=== PATIENT | female | born 1985 | race African-American/Black ===

== ENCOUNTER 2016-09-01 13:17 | Emergency (ER) | payer OTHER ==
[~2016-09-01] VITALS: Ht 152.4 cm; Wt 77.1 kg
[~2016-09-01 13:17] MED LIST: DOXYCYCLINE HY100 M4 PO; FLEXERIL10 MG PO; HYDROXYZINE50 MG PO; IBU800 MG PO; PERCOCET 5-3251 EACH PO; TORADOL10 MG PO; TRIAMCINOLONE AC0.5% TOP; TYLENOL #31 TAB PO
[2016-09-01 13:31] VITALS: BP 109/79
--- NOTE | 2016-09-01 13:55 | ED UPPER/LOWER EXTREMITY COMPL ---
History of Present Illness General Chief Complaint: Hand or Wrist Injury Stated Complaint: ?BROKEN FINGER (LT 5TH FINGER) Source: patient Exam Limitations: no limitations Vital Signs & Intake/Output Vital Signs & Intake/Output Vital Signs Date Time Temp Pulse Resp B/P Pulse O2 O2 Flow FiO2 Ox Delivery Rate 09/01 1331 98.5 66 16 109/79 98 Room Air Allergies Coded Allergies: NO KNOWN ALLERGIES (12/05/15) Reconcile Medications Ibuprofen (Ibu) 800 MG TAB 1 TAB PO Q8H PRN PAIN Oxycodone HCl/Acetaminophen (Percocet 5-325 MG Tablet) 5 MG-325 MG TABLET 1 TAB PO 4 TIMES/DAY PRN PAIN Oxycodone HCl/Acetaminophen (Percocet 5-325 MG Tablet) 1 EACH TABLET 2 TAB PO Q3P PRN PAIN Triage Note: PT STATES SHE WAS MOVING FURNITURE AND THE DRESSER FELL ON HER LEFT HAND. PT HAS SWELLING AND PAIN TO LEFT HAND Triage Nurses Notes Reviewed? yes : No Patient currently breastfeeds: No HPI: 30-year-old female with complaints of severe throbbing left hand pain and swelling after she was moving a dresser and the dresser fell onto her hand. She denies any other injuries. No previous injuries. She is right-hand dominant. Pain is at the fifth metacarpal distal region. (BEBE MOYA) Past History Travel History Traveled to [place] past 21 day No Medical History Any Pertinent Medical History? 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 No (BEBE MOYA) Review of Systems Review of Systems Constitutional: Reports: see HPI. EENTM: Reports: no symptoms. Respiratory: Reports: no symptoms. Cardiovascular: Reports: no symptoms. Gastrointestinal/Abdominal: Reports: no symptoms. Genitourinary: Reports: no symptoms. Musculoskeletal: Reports: see HPI. Skin: Reports: no symptoms. Neurological/Psychological: Reports: no symptoms. Hematologic/Endocrine: Reports: no symptoms. Immunological: Reports: no symptoms. All Other Systems: Reviewed and Negative (BEBE MOYA) Physical Exam Physical Exam General Appearance: well developed/nourished Comments: Well-developed well-nourished no apparent distress. HEENT: Atraumatic, extraocular motion intact Neck: Supple, no lymphadenopathy Back: Nontender Respiratory: No respiratory distress Extremities: No edema, full range of motion Neuro: Alert and oriented x3 Psych: Mood affect normal, normal memory normal judgment. Skin: Warm and dry, no rash on exposed skin Left hand, moderate tenderness swelling and ecchymosis to the fifth metacarpal distal aspect and fifth metacarpal phalangeal joint. Range of motion is limited secondary to pain. There is no rotational deformity noted on exam. Neurovascularly intact. (BEBE MOYA) Progress Differential Diagnosis: compartment syndrome, contusion, sprain, tendon injury Plan of Care: Orders Procedure Date/time Status URINE 09/01 1342 Complete Laboratory Tests 09/01/16 1408: Urine Test NEGATIVE Diagnostic Imaging: Viewed by Me: Radiology Read. Discussed w/RAD: Radiology Read. Radiology Impression: PATIENT: EWELINA HURLEY PRESENT AGE: 30 PATIENT ACCOUNT NO: [id number] : 84 LOCATION: [facility] ORDERING PHYSICIAN: JOSE CHOI SERVICE DATE: 09/01/16 EXAM TYPE: RAD - XRY-FINGERS, LEFT EXAMINATION: XR FINGER, LEFT CLINICAL INFORMATION: Trauma COMPARISON: None. TECHNIQUE: 4 views of the left fifth finger including a PA view of the left hand. FINDINGS: There is soft tissue swelling adjacent to the fifth metacarpal phalangeal joint. An ovoid bony fragment is seen in the soft tissues lateral to the metacarpal head. This could represent an avulsion fracture from the articular cortex of the distal fifth metacarpal. Also, there is slight offset through the growth plate of the fifth metacarpal head. IMPRESSION: Unusual fracture involving the distal aspect of the left fifth metacarpal with articular cortical avulsion and slight offset of the growth plate. No dislocation. DICTATED BY: ANTONIETA QUESADA MD DATE/TIME DICTATED:09/17 FUR CLEANER:KIANA Comments: A well-padded well molded sugar tong splint applied to the left upper extremity by myself, neurovascularly intact, place in the position of safety. Splint made of Ortho-Glass. Recommend rest ice elevation stay in splint and follow-up with orthopedist this week (BEBE MOYA) Departure Departure Disposition: HOME OR SELF CARE Condition: Stable Clinical Impression Primary Impression: Closed boxer's fracture Qualifiers: Encounter type: initial encounter Qualified Code: S62.309A - Unspecified fracture of unspecified metacarpal bone, initial encounter for closed fracture Referrals: WADE BECKFORD APRN (PCP/Family) KRISTEN YBARRA MD Referred to [facility] as new patient No Additional Instructions: Stay in splint. Motrin and Percocet as needed for pain, elevate, keep splint clean and dry, follow-up with orthopedist this week, call to make an appointment. Departure Forms: Customer Survey General Discharge Information Prescriptions: Current Visit Scripts Oxycodone HCl/Acetaminophen (Percocet 5-325 MG Tablet) 1 TAB PO 4 TIMES/DAY PRN PAIN #12 TAB (BEBE MOYA) PA/ROTOR COIL TAPER Co-Sign Statement Statement: ED Attending supervision documentation- [] I saw and evaluated the patient. I have also reviewed all the pertinent lab results and diagnostic results. I agree with the findings and the plan of care as documented in the PA's/ROTOR COIL TAPER's documentation. [X] I have reviewed the ED Record and agree with the PA's/ROTOR COIL TAPER's documentation. [] Additions or exceptions (if any) to the PAs/ROTOR COIL TAPER's note and plan are summarized below: [] (KRYSTAL SCHROEDER,DANIE)
[2016-09-01] MEDS ORDERED: PERCOCET 5-3251 EACH PO (15:04)
--- NOTE | 2016-09-01 15:05 | RADIOLOGY REPORT ---
EXAMINATION: XR FINGER, LEFT CLINICAL INFORMATION: Trauma COMPARISON: None. TECHNIQUE: 4 views of the left fifth finger including a PA view of the left hand. FINDINGS: There is soft tissue swelling adjacent to the fifth metacarpal phalangeal joint. An ovoid bony fragment is seen in the soft tissues lateral to the metacarpal head. This could represent an avulsion fracture from the articular cortex of the distal fifth metacarpal. Also, there is slight offset through the growth plate of the fifth metacarpal head. IMPRESSION: Unusual fracture involving the distal aspect of the left fifth metacarpal with articular cortical avulsion and slight offset of the growth plate. No dislocation.
== END 2016-09-01 15:30 ==
LOC: ERH 13:17
DX: S62.337A Displaced fracture of neck of fifth metacarpal bone, left hand, initial encounter for closed fracture (principal); W20.8XXA Other cause of strike by thrown, projected or falling object, initial encounter
CPT/HCPCS: 73140-LT; 81025

== ENCOUNTER 2016-10-24 03:28 | Emergency (ER) | payer OTHER ==
[~2016-10-24] VITALS: Ht 152.4 cm; Wt 79.4 kg
[2016-10-24 03:37] VITALS: BP 111/75
--- NOTE | 2016-10-24 04:03 | ED DYSPNEA/ASTHMA COMPLAINT ---
History of Present Illness General Chief Complaint: Dyspnea (COPD, CHF, Other) Stated Complaint: SOB Source: patient Exam Limitations: no limitations Vital Signs & Intake/Output Vital Signs & Intake/Output Vital Signs Date Time Temp Pulse Resp B/P Pulse O2 O2 Flow FiO2 Ox Delivery Rate 10/24 0337 93 18 111/75 96 Room Air Allergies Coded Allergies: NO KNOWN ALLERGIES (12/05/15) Reconcile Medications Albuterol Sulfate (Ventolin Hfa) 90 MCG HFA.AER.AD 2 PUF INH Q4-6 PRN PRN wheeze Azithromycin (Zithromax) 250 MG TABLET 1 DP PO AD bronchitis 2 the first day followed by 1 for days 2-5 Prednisone 50 MG TABLET 1 TAB PO DAILY bronchitis Triage Note: PT C/O SOB AND CHEST TIGHTNESS SINCE YESTERDAY MORNING. PT REPORTS HAVING A COUGH FOR PAST COUPLE DAYS. PT REPORTS SOB GETTING INCREASINGLY WORSE ON EXERTION. PT DENIES N/V/D, FEVER AND CHILLS. PT PRESENTS WITH EXP WHEEZES BILAT Triage Nurses Notes Reviewed? yes Onset: Gradual Duration: day(s):, waxing and waning Timing: recent history Severity: moderate Activities at Onset: none Modifying Factors: Improves With: rest. Worsens With: movement. Associated Symptoms: cough, wheezing : No Patient currently breastfeeds: No HPI: 30-year-old woman, history of smoking, presents with 2-3 days of cough. She notes that tonight her cough and wheezing worsened, was associated with slight yellow sputum, "I didn't feel well." She notes no fever chills chest pain abdominal pain headache lightheadedness. Past History Travel History Traveled to [place] past 21 day No Medical History Any Pertinent Medical History? 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 No Review of Systems Review of Systems Constitutional: Reports: no symptoms. EENTM: Reports: no symptoms. Respiratory: Reports: no symptoms. Cardiovascular: Reports: no symptoms. GI: Reports: no symptoms. Genitourinary: Reports: no symptoms. Musculoskeletal: Reports: no symptoms. Skin: Reports: no symptoms. Neurological/Psychological: Reports: no symptoms. Hematologic/Endocrine: Reports: no symptoms. Immunologic/Allergic: Reports: no symptoms. All Other Systems: Reviewed and Negative Physical Exam Physical Exam General Appearance: well developed/nourished, mild distress Head: atraumatic, normal appearance Eyes: Bilateral: normal appearance. Ears, Nose, Throat: normal pharynx, normal ENT inspection Neck: normal inspection, supple, full range of motion Respiratory: wheezing, mild wheeze. No respiratory distress Cardiovascular: regular rate/rhythm Gastrointestinal: normal bowel sounds, soft, non-tender, no organomegaly Extremities: normal inspection Neurologic/Psych: no motor/sensory deficits, awake, alert, oriented x 3 Skin: intact, normal color, warm/dry Core Measures ACS in differential dx? No Severe Sepsis Present: No Septic Shock Present: No Progress Differential Diagnosis: asthma, bronchitis Plan of Care: Patient had mild wheeze on exam. She was otherwise well-appearing with stable vitals. I prescribed prednisone antibiotics and an albuterol inhaler. I advocated close follow-up should her symptoms worsen. Initial ED EKG: none Departure Departure Disposition: HOME OR SELF CARE Condition: Stable Clinical Impression Primary Impression: Bronchitis Referrals: WADE BECKFORD APRN (PCP/Family) Departure Forms: Customer Survey General Discharge Information Prescriptions: Current Visit Scripts Prednisone 1 TAB PO DAILY #5 TAB Albuterol Sulfate (Ventolin Hfa) 2 PUF INH Q4-6 PRN PRN wheeze #1 INHAL Ref 1 Azithromycin (Zithromax) 1 DP PO AD #6 TAB 2 the first day followed by 1 for days 2-5 Critical Care Note Critical Care Note Critical Care Time: non-applicable
[2016-10-24] MEDS ORDERED: PREDNISONE50 M1 PO (04:04)
[2016-10-24] MEDS ORDERED: VENTOLIN HFA18 GM INH (04:04)
[2016-10-24] MEDS ORDERED: ZITHROMAX250 M2 PO (04:04)
== END 2016-10-24 04:10 ==
LOC: ERH 03:28
DX: J40 Bronchitis, not specified as acute or chronic (principal); Z72.0 Tobacco use

== ENCOUNTER 2016-12-09 13:11 | Emergency (ER) | payer OTHER ==
[~2016-12-09] VITALS: Ht 152.4 cm; Wt 81.6 kg
[~2016-12-09 13:11] MED LIST changes: +PREDNISONE50 M1 PO; +VENTOLIN HFA18 GM INH; +ZITHROMAX250 M2 PO
[2016-12-09 13:18] VITALS: BP 134/84
[2016-12-09 13:39] LABS: ABSOLUTE BASOPHIL COUNT 0 /CUMM (0.0-0.2); ABSOLUTE EOSINOPHIL COUNT 0.1 /CUMM (0.0-0.7); ABSOLUTE GRANULOCYTE CT 5.3 /CUMM (1.4-6.5); ABSOLUTE LYMPH COUNT 2.9 /CUMM (1.2-3.4); ABSOLUTE MONOCYTE COUNT 0.5 /CUMM (0.10-0.60); BASOPHIL % 0.3 % (0.0-2.0); EOSINOPHIL % 1.4 % (0-5); GRANULOCYTE % 60.6 % (42.2-75.2); MEAN CORPUSCULAR HGB CONC 32.1 G/DL (33.0-37.0); MEAN PLATELET VOLUME 8.6 FL (7.4-10.4); PLATELET COUNT 189 /CUMM (130-400); RBC DISTRIBUTION WIDTH 15.3 % (11.5-14.5); RED BLOOD CELL CT 5.06 /CUMM (4.20-5.40); WHITE BLOOD CELL COUNT 8.8 /CUMM (4.8-10.8)
--- NOTE | 2016-12-09 15:00 | ED AMS/SEIZURE/WEAK/DIZZY ---
History of Present Illness General Chief Complaint: General Adult Stated Complaint: NAUSEA, LIGHTHEADED Source: patient Exam Limitations: no limitations Vital Signs & Intake/Output Vital Signs & Intake/Output Vital Signs Date Time Temp Pulse Resp B/P Pulse O2 O2 Flow FiO2 Ox Delivery Rate 12/09 1318 98.0 74 20 134/84 98 Room Air Allergies Coded Allergies: NO KNOWN ALLERGIES (12/05/15) Reconcile Medications Albuterol Sulfate (Ventolin Hfa) 90 MCG HFA.AER.AD 2 PUF INH Q4-6 PRN PRN wheeze Azithromycin (Zithromax) 250 MG TABLET 1 DP PO AD bronchitis 2 the first day followed by 1 for days 2-5 Prednisone 50 MG TABLET 1 TAB PO DAILY bronchitis Triage Note: PT TO ED C/O NAUSEA AND LIGHTHEADEDNESS X A FEW DAYS. DENIES V/D. DENIES S/S. Triage Nurses Notes Reviewed? yes : No Patient currently breastfeeds: No HPI: Patient presents for evaluation of lightheadedness and nausea since last week. Patient's describing the episodes as moderate in intensity and intermittent. She states that today in addition to feeling quite nauseous and lightheaded she also felt jittery. She hasn't tried any medications for symptoms to this point. She denies any associated fever, cold symptoms, recent travel, , chest pain or dysuria. She occasionally gets a throbbing right lower quadrant/ suprapubic abdominal pain, intermittently over the past 2 weeks. Past surgical history is pertinent for a prior tubal with a tube resection last year. Nothing seems to trigger the episodes of symptoms and nothing seems to make them feel better either. Past History Travel History Traveled to [place] past 21 day No Medical History Any Pertinent Medical History? 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 No Review of Systems Review of Systems Constitutional: Reports: no symptoms. EENTM: Reports: no symptoms. Respiratory: Reports: no symptoms. Cardiovascular: Reports: no symptoms. GI: Reports: see HPI. Genitourinary: Reports: no symptoms. Musculoskeletal: Reports: no symptoms. Skin: Reports: no symptoms. Neurological/Psychological: Reports: no symptoms. Hematologic/Endocrine: Reports: no symptoms. Immunologic/Allergic: Reports: no symptoms. All Other Systems: Reviewed and Negative Physical Exam Physical Exam General Appearance: SEE BELOW Comments: Gen.: Well-nourished, well-developed, no acute respiratory distress. Head: Normocephalic, atraumatic. Eyes: Normal inspection bilaterally, no nystagmus, Hallpike negative Ears: Normal inspection bilaterally Nose: Normal inspection Throat/mouth : Moist mucosa Neck: Supple, full range of motion, no goiter Heart: Regular rate and rhythm, no murmurs rubs or gallops Lungs: Clear to auscultation bilaterally with normal air entry Chest: Nontender Back: Normal range of motion Abdomen: Soft, nontender, nondistended, normal bowel sounds Extremities: Normal range of motion grossly, equal radial pulses, no cyanosis clubbing or edema Neurologic: Cranial nerves grossly intact, speech is clear Skin: warm and dry Psychiatric: Calm, cooperative, no apparent delusions or hallucinations Core Measures ACS in differential dx? No CVA/TIA Diagnosis: No Severe Sepsis Present: No Septic Shock Present: No Progress Differential Diagnosis: VERTIGO, DEHYDRATION, ELECTROLYTE ABNORMALITY, ANEMIA Plan of Care: Orders Procedure Date/time Status URINE 12/09 132 Complete URINALYSIS 12/09 1322 Complete COMPREHENSIVE METABOLIC PANEL 12/09 1322 Complete CBC WITHOUT DIFFERENTIAL 12/09 1322 Complete Laboratory Tests 12/09/16 1333: Anion Gap 9, Estimated GFR > 60, BUN/Creatinine Ratio 18.6, Glucose 83, Calcium 10.0, Total Bilirubin 0.6, AST 24, ALT 38, Alkaline Phosphatase 67, Total Protein 7.4, Albumin 4.4, Globulin 3.0, Albumin/Globulin Ratio 1.5, CBC w Diff NO MAN DIFF REQ, RBC 5.06, MCV 81.0, MCH 26.0 L, RDW 15.3 H, MPV 8.6, Gran % 60.6, Lymphocytes % 32.5, Monocytes % 5.2, Eosinophils % 1.4, Basophils % 0.3, Absolute Granulocytes 5.3, Absolute Lymphocytes 2.9, Absolute Monocytes 0.5, Absolute Eosinophils 0.1, Absolute Basophils 0, PUBS MCHC 32.1 L 12/09/16 1328: Urine Color YEL, Urine Clarity HAZY H, Urine pH 6.0, Ur Specific [place] >= 1.030, Urine Protein NEG, Urine Ketones NEG, Urine Nitrite NEG, Urine Bilirubin NEG, Urine Urobilinogen 0.2, Ur Leukocyte Esterase NEG, Ur Microscopic SEDIMENT EXAMINED, Urine RBC RARE, Ur Epithelial Cells MOD H, Urine Mucus FEW, Urine Hemoglobin SMALL H, Urine Glucose NEG, Urine Test NEGATIVE Initial ED EKG: none Departure Departure Disposition: HOME OR SELF CARE Condition: Stable Clinical Impression Primary Impression: Dizziness Referrals: WADE BECKFORD APRN (PCP/Family) Additional Instructions: Meclizine as needed for dizziness. Follow-up with your primary care doctor this week for reevaluation. Return if any concerns or sudden worsening. Thank you for choosing the [facility] Emergency Department for your care. It was a pleasure to serve you today. Stiven Arreola M.D. [facility] Departure Forms: Customer Survey General Discharge Information
[2016-12-09] MEDS ORDERED: MECLIZINE HCL25 MG PO (15:05)
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
== END 2016-12-09 15:20 ==
LOC: ERH 13:11
PROVIDERS: Emergency Medicine
DX: S09.90XA Unspecified injury of head, initial encounter (principal); R42 Dizziness and giddiness; R55 Syncope and collapse; R11.0 Nausea; W19.XXXA Unspecified fall, initial encounter; Y93.89 Activity, other specified; Y92.9 Unspecified place or not applicable
CPT/HCPCS: 81001; 81025

== ENCOUNTER 2017-02-26 07:54 | Emergency (ER) | payer OTHER ==
[~2017-02-26] VITALS: Ht 152.4 cm; Wt 79.4 kg
[~2017-02-26 07:54] MED LIST changes: +MECLIZINE HCL25 MG PO
--- NOTE | 2017-02-26 08:01 | ED NECK/BACK PAIN COMPLAINT ---
History of Present Illness General Chief Complaint: Low Back Pain/Injury Stated Complaint: LT LEG/LOW BACK PAIN S/P FALL 3 WEEKS AGO Source: patient, old records Exam Limitations: no limitations Vital Signs & Intake/Output Vital Signs & Intake/Output Vital Signs Date Time Temp Pulse Resp B/P B/P Pulse O2 O2 Flow FiO2 Mean Ox Delivery Rate 02/26 0836 98.3 74 15 124/74 100 Room Air 02/26 0822 99 Room Air 02/26 0757 97.4 74 18 126/70 97 Room Air Allergies Coded Allergies: NO KNOWN ALLERGIES (12/05/15) Reconcile Medications Methylprednisolone. (Medrol) 4 MG TAB.DS.PK 1 DP PO AD RADICULOPATHY 6 on day 1 then reduce by one tablet daily until gone Oxycodone HCl/Acetaminophen (Percocet 5-325 MG Tablet) 5 MG-325 MG TABLET 1 TAB PO BID PRN BACK PAIN Triage Nurses Notes Reviewed? yes Onset: Gradual Duration: week(s): (3), constant Timing: recent history Quality/Severity: moderate Location: paraspinous muscles Radiation: buttocks Context: fall/near fall Method of Injury: fall Modifying Factors: movement, rest Associated Symptoms: DENIES : No Patient currently breastfeeds: No HPI: 31-year-old female no medical history presents to the ER complaining of left lower back pain radiating into her buttocks and lower leg for the past 3 weeks after she states she was going down stairs that are rotted. She states that one of the stairs broke causing her to fall partially down 6 stairs. She do not see care at the time she been taking Motrin and one of her mom's muscle relaxers without improvement. Pain is 10 out of 10 with movement change in position better at rest. She denies any urinary or bowel incontinence or pain and no prodromal dizziness lightheadedness prior to her fall no other modifying factors or associated symptoms. (JERRY CHOI,JOSE) Past History Travel History Traveled to [place] past 21 day No Medical History Any Pertinent Medical History? none Neurological: NONE EENT: NONE Cardiovascular: NONE Respiratory: NONE Gastrointestinal: NONE Hepatic: NONE Renal: NONE Musculoskeletal: NONE Psychiatric: NONE Endocrine: NONE Blood Disorders: NONE Cancer(s): NONE [employer]/Reproductive: NONE History of MRSA: No History of VRE: No History of CDIFF: No Tetanus Vaccine: 11/12/11 Surgical History Surgical History: NONE Psychosocial History Who do you live with Significant Other Services at Home None What is your primary language Turkmen Tobacco Use: Never used ETOH Use: denies use Illicit Drug Use: denies illicit drug use Family History Hx Contributory? No (JOSE MARCUM) Review of Systems Review of Systems Constitutional: Reports: see HPI. All Other Systems: Reviewed and Negative Comments Review of systems: See HPI, All other systems negative. Constitutional, no chills no fever, no malaise HEENT:no sore throat no congestion Cardiovascular: No chest pain , no palpitation Skin: no rashes, no change in skin Respiratory: No dyspnea no cough no sputum GI: No nausea no vomiting, no diarrhea, : No dysuria No hematuria, no frequency Muscle skeletal: No joint pain, no joint swelling, back pain, no neck pain, Neurologic: No numbness, no headache Psych: No stress Heme/endocrine: No bruising Immunology: No lymphadenopathy (JOSE MARCUM) Physical Exam Physical Exam General Appearance: well developed/nourished, no apparent distress, alert, awake Neck: normal inspection, supple, full range of motion Comments: Well-developed well-nourished patient in no apparent distress. HEENT: Atraumatic, extraocular motion intact Neck: Supple, FROM Back: FROM no midline tenderness there is left-sided paralumbar muscle tenderness to palpation no CVA tenderness Cardiovascular: Regular rate and rhythms no murmurs Respiratory: No respiratory distress. Patient speaking in full complete sentences. Breath sounds clear to auscultation bilaterally: NO W/R/R Abdomen: Soft nontender no rebound or guarding Extremities: full range of motion negative straight leg raise bilaterally atraumatic bilateral lower extremities Neuro: awake, alert, and oriented to person, place and time. There were no obvious focal neurologic abnormalities. Skin: Warm & dry;No appreciable rash on exposed skin Psych: Mood affect normal, normal memory normal judgment. (JOSE MARCUM) Progress Differential Diagnosis: cauda equina syn, herniated disc, myofascial strain, pyelo/UTI, spinal cord inj, T/L spine injury, fx, sprain contusion Plan of Care: Orders Procedure Date/time Status XRY-LUMBOSACRAL SPINE AP & LAT 02/26 0810 Active X-ray ordered patient is declining anything for pain offered I discussed with the patient at length all of their results. I had an extensive conversation regarding need for close follow up with their primary care physician this week as well as return precautions. I answered all of their questions, they feel comfortable with the plan and follow-up care. I discussed with the patient/family the medications that they will receive. I gave them signs and symptoms that could indicate an adverse reaction. I have advised them to limit their activities until they can see how they respond to the medication. (JERRY CHOI,JOSE) Diagnostic Imaging: Viewed by Me: Radiology Read. Discussed w/RAD: Radiology Read. Radiology Impression: PATIENT: EWELINA HURLEY PRESENT AGE: 31 PATIENT ACCOUNT NO: [id number] : 84 LOCATION: [facility] ORDERING PHYSICIAN: JOSE CHOI SERVICE DATE: 02/26/17 EXAM TYPE: RAD - XRY- LUMBOSACRAL SPINE AP & LAT EXAMINATION: XR LUMBOSACRAL SPINE CLINICAL INFORMATION: Pain after fall. COMPARISON: None TECHNIQUE: AP and lateral views of the lumbosacral spine were obtained. FINDINGS: The vertebral bodies and posterior elements are normal. The disc spaces are preserved and the vertebral alignment is normal. The paraspinal soft tissues are normal. IMPRESSION: Unremarkable examination. DICTATED BY: HALI RENDON MD DATE/TIME DICTATED:825 UPPER CUTTER MACHINE:KIANA DATE/TIME TRANSCRIBED:02/26/17825 CONFIDENTIAL, DO NOT COPY WITHOUT APPROPRIATE AUTHORIZATION. <Electronically signed in Other Vendor System> SIGNED BY: HALI RENDON MD 02/26/17 0834 (JOSE MARCUM) Departure Departure Disposition: HOME OR SELF CARE Condition: Stable Clinical Impression Primary Impression: Low back strain Referrals: WADE BECKFORD APRN (PCP/Family) Additional Instructions: REST, INTERCHANGE ICE AND HEAT. MEDROL DOSE DAVID DIRECTED. IBUPROFEN 800MG EVERY 8 HOURS. PERCOCET FOR BREAKTHROUGH PAIN. THIS IS A NARCOTIC AND HIGHLY ADDICTIVE. NO DRIVING OR DRINKING ALCOHOL WHILE TAKING. FOLLOW UP WITHYOUR PMD SCHEDULED. RETURN TO THE ER WITH ANY CONCERNS THESE WERE SENT TO YOUR PHARMACY Departure Forms: Customer Survey General Discharge Information Prescriptions: Current Visit Scripts Methylprednisolone. (Medrol) 1 DP PO AD #1 DP 6 on day 1 then reduce by one tablet daily until gone Oxycodone HCl/Acetaminophen (Percocet 5-325 MG Tablet) 1 TAB PO BID PRN BACK PAIN #10 TAB (JERRY CHOI,JOSE) PA/TELEGRAPH LINEMAN Co-Sign Statement Statement: ED Attending supervision documentation- I saw and evaluated the patient. I have also reviewed all the pertinent lab results and diagnostic results. I agree with the findings and the plan of care as documented in the PA's/TELEGRAPH LINEMAN's documentation. x I have reviewed the ED Record and agree with the PA's/TELEGRAPH LINEMAN's documentation. [] Additions or exceptions (if any) to the PAs/TELEGRAPH LINEMAN's note and plan are summarized below: [] (RADHA SCHROEDER,ABRAHAM)
[2017-02-26] MEDS ORDERED: PERCOCET 5-3251 EACH PO (08:29)
[2017-02-26] MEDS ORDERED: MEDROL4 M2 PO (08:29)
--- NOTE | 2017-02-26 08:34 | RADIOLOGY REPORT ---
EXAMINATION: XR LUMBOSACRAL SPINE CLINICAL INFORMATION: Pain after fall. COMPARISON: None TECHNIQUE: AP and lateral views of the lumbosacral spine were obtained. FINDINGS: The vertebral bodies and posterior elements are normal. The disc spaces are preserved and the vertebral alignment is normal. The paraspinal soft tissues are normal. IMPRESSION: Unremarkable examination.
[2017-02-26 08:36] VITALS: BP 124/74
== END 2017-02-26 08:37 ==
LOC: ERH 07:54
DX: S39.012A Strain of muscle, fascia and tendon of lower back, initial encounter (principal); W10.9XXA Fall (on) (from) unspecified stairs and steps, initial encounter; Y93.01 Activity, walking, marching and hiking; Y92.9 Unspecified place or not applicable
CPT/HCPCS: 72100